=== PATIENT | male | born 1965 | race African-American/Black ===

== ENCOUNTER 2024-11-08 15:09 | Inpatient (IN) | payer OTHER ==
[~2024-11-08] VITALS: Ht 177.8 cm; Wt 48.2 kg
[2024-11-09 01:55] LABS: HEMATOCRIT. 27.8 % (42.0-52.0); HEMOGLOBIN. 8.8 g/dL (14.0-18.0); MEAN CORPUSCULAR HGB CONC 31.8 g/dL (31.0-37.0); MEAN PLATELET VOLUME 6.7 fl (7.4-10.4); PLATELET 381 x1000/uL (130-400); RED BLOOD CELL COUNT 3.27 mill/uL (4.7-6.1); WHITE BLOOD COUNT 11.2 x1000/uL (4.5-11.0)
[2024-11-09 01:58] LABS: CLARITY URINE TURBID (CLEAR); COLOR URINE YELLOW (YELLOW); GLUCOSE URINE NEGATIVE (NEGATIVE); KETONES URINE NEGATIVE (NEGATIVE); LEUKOCYTE ESTERASE URINE NEGATIVE (NEGATIVE); NITRITE URINE NEGATIVE (NEGATIVE); OCCULT BLOOD URINE 1+ (NEGATIVE); PH URINE 5.5 (4.5-8.0); PROTEIN URINE 3+ (NEGATIVE); SPECIFIC GRAVITY URINE 1.017 (1.005-1.030); UROBILINOGEN URINE 0.2 E.U./dL (0.2-1.0)
[2024-11-09] MEDS: DEXAMETHASONE 10 MG/ML VIAL PO ONE (02:15)
[2024-11-09] MEDS: IPRATROPIUM/ALBUTEROL 0.5-3(2.5)MG/3ML NEB HHN ONE (02:15)
[2024-11-09] MEDS: AZITHROMYCIN 500 MG TABLET PO ONE (02:15)
[2024-11-09] MEDS: CEFTRIAXONE SODIUM 1G VIAL IM ONE (02:15)
[2024-11-09 02:22] LABS: DIFFERENTIAL COMMENT 1
[2024-11-09 02:41] LABS: SQUAMOUS EPITHELIAL CELL URINE 2+ /lpf (RARE/1+)
[2024-11-09 02:42] LABS: BACTERIA URINE 1+; RBC URINE 0-2 /hpf (0-2); WBC URINE 0-2 /hpf (0-2)
[2024-11-09 02:44] LABS: AMORPHOUS SEDIMENT URINE 1+ /lpf
[2024-11-09] MEDS ORDERED: CLONIDINE 0.1MG TABLET PO PRN (05:30)
[2024-11-09] MEDS ORDERED: ENOXAPARIN 40MG/0.4ML SYR SUBCUT SCH (05:30)
[2024-11-09] MEDS ORDERED: CEFTRIAXONE 1GM/50ML 50 ML IV SCH (05:30)
[2024-11-09] MEDS ORDERED: ACETAMINOPHEN 325MG TABLET PO PRN (05:30)
[2024-11-09] MEDS ORDERED: ONDANSETRON HCL 4MG/2ML INJ IV PRN (05:30)
[2024-11-09] MEDS ORDERED: MAGNESIUM/ALUMINUM HYDROXIDE/SIMETHICONE 30ML UDC PO PRN (05:30)
[2024-11-09] MEDS ORDERED: AZITHROMYCIN 500MG/250ML 250 ML IV SCH (05:30)
[2024-11-09] MEDS ORDERED: DOCUSATE SODIUM 100MG CAPSULE PO PRN (05:30)
[2024-11-09] MEDS ORDERED: IPRATROPIUM/ALBUTEROL 0.5-3(2.5)MG/3ML NEB HHN PRN (05:30)
[2024-11-09 07:43] LABS: CHLORIDE 97 mEq/L (98-107); POTASSIUM 3.9 mEq/L (3.5-5.1); SODIUM 137 mEq/L (136-145)
[2024-11-09 07:44] LABS: CARBON DIOXIDE 24 mEq/L (21-32)
[2024-11-09 07:49] LABS: GLUCOSE 220 mg/dL (70-105); IRON 35 ug/dL (65-175)
[2024-11-09 07:50] LABS: UREA NITROGEN BLOOD 53 mg/dL (9-23)
[2024-11-09 07:52] LABS: PREALBUMIN 7.4 mg/dl (10.0-40.0)
[2024-11-09] MEDS: LACTATED RINGERS 1,000 ML IV SCH (08:00)
[2024-11-09 08:05] LABS: TOTAL IRON BINDING CAPACITY > 670 ug/dl (250-425)
[2024-11-09 08:06] LABS: CALCIUM 4.7 mg/dL (8.7-10.4); TROPONIN I HIGH SENSITIVITY < 4 ng/L (3.0-53)
[2024-11-09 08:07] LABS: VITAMIN B12 SERUM 1062 pg/mL (211-911)
[2024-11-09 08:22] LABS: FERRITIN 2256 ng/mL (22-322)
[2024-11-09] MEDS: IPRATROPIUM/ALBUTEROL 0.5-3(2.5)MG/3ML NEB HHN SCH (12:00)
[2024-11-09 14:13] LABS: ANISOCYTOSIS 2+; PLATELET ESTIMATE NORMAL
[2024-11-09 20:00] VITALS: BP 109/60; PULSE 91; RESP 20; TEMP 37.00296; O2SAT 97
[2024-11-09] MEDS ORDERED: AZITHROMYCIN 500 MG in SODIUM CHLORIDE 0.9% 250 ML IV SCH (21:00)
[2024-11-09] MEDS ORDERED: FAMOTIDINE 20MG TABLET PO SCH (21:00)
[2024-11-09 21:43] VITALS: BP 109/60; PULSE 91; RESP 20; TEMP 37.0296
[2024-11-09] MEDS: FAMOTIDINE 20MG TABLET PO SCH (23:10)
[2024-11-09] MEDS: CEFTRIAXONE 1GM/50ML 50 ML IV SCH (23:11)
[2024-11-09] MEDS: ENOXAPARIN 40MG/0.4ML SYR SUBCUT SCH (23:12)
[2024-11-10] VITALS (8 sets, daily range): BP systolic 92–119; BP diastolic 51–68; PULSE 75–112; RESP 18–26; TEMP 36.44736–37.00296; O2SAT 18–100
[2024-11-10] MEDS: AZITHROMYCIN 500 MG in SODIUM CHLORIDE 0.9% 250 ML IV SCH (06:08)
[2024-11-10] MEDS: CALCIUM GLUCONATE 1GM PREMIX 50 ML IV NR ×2 (13:24→16:59)
[2024-11-10 13:42] LABS: POTASSIUM 4.4 mEq/L (3.5-5.1)
[2024-11-10 13:48] LABS: CREATININE 2.1 mg/dL (0.6-1.3)
[2024-11-10 13:50] LABS: HEMATOCRIT. 22.3 % (42.0-52.0); HEMOGLOBIN. 7.2 g/dL (14.0-18.0); MEAN CORPUSCULAR HEMOGLOBIN 27.7 pg (28.0-32.0); MEAN CORPUSCULAR HGB CONC 32.5 g/dL (31.0-37.0); MEAN CORPUSCULAR VOLUME 85.3 fL (80.0-94.0); MEAN PLATELET VOLUME 6.6 fl (7.4-10.4); PLATELET 341 x1000/uL (130-400); RED BLOOD CELL COUNT 2.62 mill/uL (4.7-6.1); RED CELL DISTRIBUTION WIDTH 22.2 % (11.6-14.6)
[2024-11-10 13:59] LABS: DIFFERENTIAL COMMENT 1
[2024-11-10] MEDS: INFLUENZA VACCINE 05/PF 0.5 ML SYRINGE IM ONE (21:00)
[2024-11-10] MEDS: PNEUMOCOCCAL 20-VAL CONJ-DIP CRM 0.5ML IM ONE (21:00)
[2024-11-10 21:29] LABS: ANISOCYTOSIS 2+; PLATELET ESTIMATE NORMAL
[2024-11-10] MEDS: GUAIFENESIN 200MG/10ML SUGAR FREE UDC PO PRN (22:22)
[2024-11-11] VITALS (8 sets, daily range): BP systolic 15–123; BP diastolic 46–63; PULSE 79–114; RESP 17–22; TEMP 36.114–36.72516; O2SAT 93–99
[2024-11-11] MEDS: ACETAMINOPHEN 325MG TABLET PO PRN (03:44)
[2024-11-11 09:11] LABS: FOLATE HEMATOCRIT 27.9 % (37.5-51.0)
[2024-11-11 10:34] LABS: CALCIUM 4.4 mg/dL (8.7-10.4)
[2024-11-11] MEDS ORDERED: AZIT250T12 MT (10:48)
[2024-11-11] MEDS ORDERED: AMOX1TAB15 MT (10:48)
[2024-11-11 13:10] LABS: FOLATE RBC 1204 ng/mL (>498)
[2024-11-11 17:25] LABS: HEMOGLOBIN. 7.6 g/dL (14.0-18.0); MEAN CORPUSCULAR HEMOGLOBIN 27.2 pg (28.0-32.0); MEAN CORPUSCULAR HGB CONC 31.8 g/dL (31.0-37.0); MEAN CORPUSCULAR VOLUME 85.5 fL (80.0-94.0); MEAN PLATELET VOLUME 6.6 fl (7.4-10.4); PLATELET 354 x1000/uL (130-400); RED BLOOD CELL COUNT 2.81 mill/uL (4.7-6.1); RED CELL DISTRIBUTION WIDTH 22.6 % (11.6-14.6); WHITE BLOOD COUNT 6.7 x1000/uL (4.5-11.0)
[2024-11-11 17:27] LABS: DIFFERENTIAL COMMENT 1
[2024-11-11 17:45] LABS: LACTATE DEHYDROGENASE 848 IU/L (120-246)
[2024-11-11 20:32] LABS: PLATELET ESTIMATE NORMAL
[2024-11-12] VITALS (9 sets, daily range): BP systolic 91–124; BP diastolic 46–64; PULSE 68–103; RESP 16–22; TEMP 36.3918–36.72516; O2SAT 93–99
[2024-11-12 09:13] LABS: POTASSIUM 3.4 mEq/L (3.5-5.1)
[2024-11-12 09:17] LABS: HEMOGLOBIN. 7.1 g/dL (14.0-18.0); MEAN CORPUSCULAR HEMOGLOBIN 27.9 pg (28.0-32.0); MEAN CORPUSCULAR HGB CONC 32.5 g/dL (31.0-37.0); MEAN PLATELET VOLUME 6.8 fl (7.4-10.4); PLATELET 304 x1000/uL (130-400); RED BLOOD CELL COUNT 2.56 mill/uL (4.7-6.1); RED CELL DISTRIBUTION WIDTH 21.9 % (11.6-14.6)
[2024-11-12 09:19] LABS: CREATININE 2.1 mg/dL (0.6-1.3); INR 1.2; PROTHROMBIN TIME 13.7 sec (9.6-11.0)
[2024-11-12 09:22] LABS: PHOSPHORUS 6.3 mg/dL (2.5-4.9)
[2024-11-12 09:28] LABS: DIFFERENTIAL COMMENT 1
[2024-11-12 13:15] LABS: PROTEIN BODY FLUID 3.2 gm/dL
[2024-11-12] MEDS: SEVELAMER CARBONATE 800 MG TABLET PO SCH (13:39)
[2024-11-12 14:55] LABS: BG BASE EXCESS -6.7 mmol/L (-2.0-3.0); BG CARBOXYHEMOGLOBIN 0.5 % (0.5-1.5); BG DEOXYHEMOGLOBIN 3.5 % (0.0-5.0); BG FRACTION INSPIRED OXYGEN 40; BG HCO3 ACT 17.5 mmol/L (21.0-28.0); BG METHEMOGLOBIN 0.1 % (0.5-1.5); BG OXYGEN SATURATION 96.5 % (94.0-98.0); BG OXYHEMOGLOBIN 95.9 % (94.0-98.0); BG PCO2 29.1 mmHg (35.0-48.0); BG PH 7.396 (7.350-7.450); BG PO2 95.3 mmHg (83.0-108.0); BG SAMPLE SITE LEFT RADIAL; BG VENT MODE NASAL CANNULA
[2024-11-12 16:08] LABS: ANISOCYTOSIS 2+; GIANT PLATELETS 1+; HYPOCHROMASIA 1+; PLATELET ESTIMATE NORMAL
[2024-11-12] MEDS: DOXYCYCLINE HYCLATE 100MG CAPSULE PO SCH (21:29)
[2024-11-12] MEDS: CEFTRIAXONE 1GM/50ML 50 ML IV SCH (21:47)
[2024-11-13] VITALS (8 sets, daily range): BP systolic 97–109; BP diastolic 53–61; PULSE 79–108; RESP 16–20; TEMP 36.44736–36.6696; O2SAT 93–99
[2024-11-13] MEDS: CALCIUM GLUCONATE 1GM PREMIX 50 ML IV NR (10:49)
[2024-11-13] MEDS: CALCIUM ACETATE 667MG CAPSULE PO NR (10:50)
[2024-11-13] MEDS: CALCIUM 1250MG TABLET (500MG ELEMENTAL CALCIUM) PO SCH (12:47)
[2024-11-13] MEDS: ERGOCALCIFEROL 50000UNITS CAPSULE PO NR (12:47)
[2024-11-13 12:52] LABS: HEMATOCRIT. 23.2 % (42.0-52.0); HEMOGLOBIN. 7.3 g/dL (14.0-18.0); MEAN CORPUSCULAR HEMOGLOBIN 27.5 pg (28.0-32.0); MEAN CORPUSCULAR HGB CONC 31.7 g/dL (31.0-37.0); MEAN CORPUSCULAR VOLUME 86.9 fL (80.0-94.0); MEAN PLATELET VOLUME 6.6 fl (7.4-10.4); PLATELET 284 x1000/uL (130-400); RED BLOOD CELL COUNT 2.67 mill/uL (4.7-6.1); RED CELL DISTRIBUTION WIDTH 22.4 % (11.6-14.6); WHITE BLOOD COUNT 7.6 x1000/uL (4.5-11.0)
[2024-11-13 13:10] LABS: DIFFERENTIAL COMMENT 1
[2024-11-13 13:24] LABS: CARBON DIOXIDE 19 mEq/L (21-32); CHLORIDE 110 mEq/L (98-107)
[2024-11-13 13:30] LABS: CREATININE 1.9 mg/dL (0.6-1.3); GLUCOSE 118 mg/dL (70-105); UREA NITROGEN BLOOD 40 mg/dL (9-23)
[2024-11-13 13:31] LABS: ALANINE AMINOTRANSFERASE 31 IU/L (10-49)
[2024-11-13 13:32] LABS: ALBUMIN 3.5 g/dL (3.2-4.8); ASPARTATE AMINOTRANSFERASE 106 IU/L (<34); BILIRUBIN TOTAL 0.2 mg/dL (0.1-1.0); PROTEIN TOTAL 5.7 g/dL (6.0-8.3)
[2024-11-13 13:36] LABS: BILIRUBIN DIRECT < 0.1 mg/dL (<=3.0)
[2024-11-13 13:38] LABS: POTASSIUM 2.8 mEq/L (3.5-5.1); SODIUM 146 mEq/L (136-145)
[2024-11-13] MEDS: MAGNESIUM 2 G PREMIX 50 ML IV NR (15:03)
[2024-11-13 17:00] LABS: ANISOCYTOSIS 2+; PLATELET ESTIMATE NORMAL
[2024-11-13 17:01] LABS: GIANT PLATELETS 1+; HYPOCHROMASIA 1+
[2024-11-13] MEDS: CALCIUM GLUCONATE 1GM PREMIX 50ML IV ONE (18:29)
[2024-11-13] MEDS ORDERED: CALCIUM GLUCONATE 100MG/ML 10ML VIAL IV NR (18:45)
[2024-11-13] MEDS: MAGNESIUM 4 G PREMIX 100 ML IV NR (20:10)
[2024-11-14] VITALS: BP 101/55; PULSE 81; RESP 18; TEMP 36.55848; O2SAT 100
[2024-11-14] MEDS: KCL 20MEQ/100ML PREMIX 100 ML IV SCH (00:35)
[2024-11-14 04:00] VITALS: BP 107/59; PULSE 87; RESP 18; TEMP 36.61404; O2SAT 98
[2024-11-14 08:08] VITALS: BP 104/54; PULSE 84; RESP 18; TEMP 36.55848; O2SAT 97
[2024-11-14 08:20] LABS: POTASSIUM 3.2 mEq/L (3.5-5.1)
[2024-11-14 08:21] LABS: HEMATOCRIT. 23.3 % (42.0-52.0); HEMOGLOBIN. 7.5 g/dL (14.0-18.0); MEAN CORPUSCULAR HEMOGLOBIN 27.5 pg (28.0-32.0); MEAN CORPUSCULAR HGB CONC 32.2 g/dL (31.0-37.0); MEAN CORPUSCULAR VOLUME 85.5 fL (80.0-94.0); MEAN PLATELET VOLUME 6.8 fl (7.4-10.4); PLATELET 271 x1000/uL (130-400); RED BLOOD CELL COUNT 2.72 mill/uL (4.7-6.1); RED CELL DISTRIBUTION WIDTH 22.3 % (11.6-14.6)
[2024-11-14 08:26] LABS: CREATININE 1.6 mg/dL (0.6-1.3)
[2024-11-14 08:38] LABS: DIFFERENTIAL COMMENT 1
[2024-11-14 08:44] LABS: CALCIUM 4.4 mg/dL (8.7-10.4)
[2024-11-14] MEDS ORDERED: CALCIUM GLUCONATE 1,000 MG in DEXT 5% WATER 90 ML IV ONE (09:15)
[2024-11-14 10:27] LABS: ANISOCYTOSIS 1+; PLATELET ESTIMATE NORMAL
[2024-11-14] MEDS: CALCIUM GLUCONATE 1GM PREMIX 50 ML IV NR (11:24)
[2024-11-14] MEDS: POTASSIUM CHLORIDE 20MEQ/PACKET PO NR (11:24)
[2024-11-14] MEDS ORDERED: TAMS-11 PO (11:35)
[2024-11-14 12:05] VITALS: BP 96/60; PULSE 78; RESP 18; TEMP 36.44736; O2SAT 98
[2024-11-14] MEDS: CALCIUM CARBONATE 500MG TABLET CHEW PO SCH (12:37)
[2024-11-14] MEDS: FERROUS SULFATE 325MG TABLET PO SCH (12:37)
[2024-11-14 16:15] VITALS: BP 110/66; PULSE 82; RESP 18; TEMP 36.44736; O2SAT 98
[2024-11-14 17:42] LABS: CHLORIDE 111 mEq/L (98-107); POTASSIUM 3.6 mEq/L (3.5-5.1); SODIUM 144 mEq/L (136-145)
[2024-11-14 17:43] LABS: CARBON DIOXIDE 21 mEq/L (21-32)
[2024-11-14 17:44] LABS: BASOPHILS % 0.2 % (0.0-2.0); EOSINOPHILS % 0.4 % (0.0-5.0); HEMATOCRIT. 23.7 % (42.0-52.0); HEMOGLOBIN. 7.3 g/dL (14.0-18.0); LYMPHOCYTES % 8.7 % (20.0-50.0); MEAN CORPUSCULAR HEMOGLOBIN 26.7 pg (28.0-32.0); MEAN CORPUSCULAR HGB CONC 30.7 g/dL (31.0-37.0); MEAN CORPUSCULAR VOLUME 86.9 fL (80.0-94.0); MEAN PLATELET VOLUME 6.7 fl (7.4-10.4); MONOCYTES % 8.6 % (2.0-8.0); NEUTROPHILS % 82.1 % (40.0-76.0); PLATELET 273 x1000/uL (130-400); RED BLOOD CELL COUNT 2.73 mill/uL (4.7-6.1); WHITE BLOOD COUNT 6.7 x1000/uL (4.5-11.0)
[2024-11-14 17:45] LABS: ADD RBC MORPHOLOGY YES; DIFFERENTIAL COMMENT 1
[2024-11-14 17:48] LABS: CREATININE 1.5 mg/dL (0.6-1.3); GLUCOSE 107 mg/dL (70-105); UREA NITROGEN BLOOD 29 mg/dL (9-23)
[2024-11-14 18:01] LABS: CALCIUM 4.4 mg/dL (8.7-10.4)
[2024-11-14 20:57] LABS: ANISOCYTOSIS 2+; HYPOCHROMASIA 1+; OVALOCYTES 1+; PLATELET ESTIMATE NORMAL
[2024-11-14] MEDS: MELATONIN 3MG TABLET PO NR (22:24)
[2024-11-14] MEDS: MAGNESIUM 2 G PREMIX 50 ML IV NR (23:11)
[2024-11-14] MEDS: CALCIUM 1250MG TABLET (500MG ELEMENTAL CALCIUM) PO SCH (23:25)
[2024-11-15] VITALS (7 sets, daily range): BP systolic 99–109; BP diastolic 58–73; PULSE 77–96; RESP 18–20; TEMP 35.89176–37.00296; O2SAT 97–98
[2024-11-15] MEDS ORDERED: CALCIUM GLUCONATE IV SCH
[2024-11-15] MEDS ORDERED: WATER IV SCH
[2024-11-15] MEDS ORDERED: DEXTROSE 5% IV SCH
[2024-11-15] MEDS: CALCIUM GLUCONATE 1GM PREMIX 50 ML IV NR ×2 (01:15→21:47)
[2024-11-15 07:11] LABS: BASOPHILS % 0.3 % (0.0-2.0); EOSINOPHILS % 0.4 % (0.0-5.0); HEMATOCRIT. 24.7 % (42.0-52.0); HEMOGLOBIN. 7.8 g/dL (14.0-18.0); LYMPHOCYTES % 8.7 % (20.0-50.0); MEAN CORPUSCULAR HEMOGLOBIN 27.2 pg (28.0-32.0); MEAN CORPUSCULAR HGB CONC 31.5 g/dL (31.0-37.0); MEAN CORPUSCULAR VOLUME 86.2 fL (80.0-94.0); MEAN PLATELET VOLUME 6.9 fl (7.4-10.4); MONOCYTES % 7.4 % (2.0-8.0); NEUTROPHILS % 83.2 % (40.0-76.0); PLATELET 279 x1000/uL (130-400); RED BLOOD CELL COUNT 2.86 mill/uL (4.7-6.1); WHITE BLOOD COUNT 6.8 x1000/uL (4.5-11.0)
[2024-11-15 07:30] LABS: ADD RBC MORPHOLOGY NO; DIFFERENTIAL COMMENT 1
[2024-11-15 07:35] LABS: T4 FREE 0.89 ng/dL (0.89-1.76); THYROID STIMULATING HORMONE 0.91 uIU/mL (0.55-4.78)
[2024-11-15 07:37] LABS: PHOSPHORUS 3.2 mg/dL (2.5-4.9)
[2024-11-15] MEDS ORDERED: CALCIUM 1250MG TABLET (500MG ELEMENTAL CALCIUM) PO SCH (07:40)
[2024-11-15 07:46] LABS: CREATINE KINASE 1787 IU/L (46-171)
[2024-11-15] MEDS: SODIUM CHLORIDE 0.45% 1,000 ML IV SCH (09:23)
[2024-11-15] MEDS: TAMSULOSIN HCL 0.4MG SR CAPSULE PO SCH (09:23)
[2024-11-15 13:25] LABS: CHLORIDE 111 mEq/L (98-107); POTASSIUM 3.4 mEq/L (3.5-5.1); SODIUM 146 mEq/L (136-145)
[2024-11-15 13:26] LABS: CARBON DIOXIDE 21 mEq/L (21-32)
[2024-11-15 13:31] LABS: CREATININE 1.4 mg/dL (0.6-1.3); GLUCOSE 92 mg/dL (70-105); UREA NITROGEN BLOOD 28 mg/dL (9-23)
[2024-11-15] MEDS: POTASSIUM CHLORIDE 20MEQ/PACKET PO NR (14:05)
[2024-11-15 20:16] LABS: CREATINE KINASE 1493 IU/L (46-171)
[2024-11-15] MEDS: CALCIUM GLUCONATE IV SCH (21:47)
[2024-11-15] MEDS: DEXTROSE 5% IV SCH (21:47)
[2024-11-15] MEDS: WATER IV SCH (21:47)
[2024-11-15] MEDS: CALCITRIOL 1MCG/ML AMP IV NR (21:49)
[2024-11-16] VITALS: BP 100/60; PULSE 89; RESP 19; TEMP 36.44736; O2SAT 98
[2024-11-16 00:16] LABS: CALCIUM URINE (RAW) < 1.0 mg/dL
[2024-11-16 00:49] LABS: CREATININE URINE (RAW) 36.2 mg/dl
[2024-11-16 01:02] LABS: CALCIUM URINE 24 HR 11.3 mg/24hr (<300); TOTAL VOLUME 24 HR 1125 mL
[2024-11-16 04:00] VITALS: BP 110/65; PULSE 90; RESP 19; TEMP 36.6696; O2SAT 100
[2024-11-16 08:00] VITALS: BP 118/69; PULSE 91; RESP 18; TEMP 36.61404; O2SAT 98
[2024-11-16 11:17] LABS: CHLORIDE 107 mEq/L (98-107); POTASSIUM 3.3 mEq/L (3.5-5.1); SODIUM 142 mEq/L (136-145)
[2024-11-16 11:18] LABS: CARBON DIOXIDE 23 mEq/L (21-32)
[2024-11-16 11:23] LABS: CREATININE 1.1 mg/dL (0.6-1.3); GLUCOSE 124 mg/dL (70-105); UREA NITROGEN BLOOD 26 mg/dL (9-23)
[2024-11-16 11:30] LABS: BASOPHILS % 0.3 % (0.0-2.0); EOSINOPHILS % 0.1 % (0.0-5.0); HEMATOCRIT. 22.8 % (42.0-52.0); HEMOGLOBIN. 7.4 g/dL (14.0-18.0); LYMPHOCYTES % 7.3 % (20.0-50.0); MEAN CORPUSCULAR HEMOGLOBIN 27.7 pg (28.0-32.0); MEAN CORPUSCULAR HGB CONC 32.2 g/dL (31.0-37.0); MEAN PLATELET VOLUME 6.6 fl (7.4-10.4); MONOCYTES % 7.3 % (2.0-8.0); PLATELET 262 x1000/uL (130-400); RED BLOOD CELL COUNT 2.66 mill/uL (4.7-6.1); RED CELL DISTRIBUTION WIDTH 22.2 % (11.6-14.6); WHITE BLOOD COUNT 6.9 x1000/uL (4.5-11.0)
[2024-11-16 11:33] LABS: CALCIUM 5.6 mg/dL (8.7-10.4)
[2024-11-16 11:37] LABS: ADD RBC MORPHOLOGY NO; DIFFERENTIAL COMMENT 1
[2024-11-16 12:00] VITALS: BP 101/59; PULSE 89; RESP 18; TEMP 36.78072; O2SAT 98
[2024-11-16] MEDS: POTASSIUM CHLORIDE 20MEQ/PACKET PO NR (13:15)
[2024-11-16] MEDS: POTASSIUM CHLORIDE 20MEQ TABLET SR PO SCH (14:45)
[2024-11-16] MEDS: CHOLECALCIFEROL (D3) 1000 UNIT TABLET PO SCH (15:23)
[2024-11-16 16:00] VITALS: BP 119/66; PULSE 98; RESP 16; TEMP 36.61404; O2SAT 97
[2024-11-16] MEDS: MAGNESIUM 4 G PREMIX 100 ML IV NR (18:15)
[2024-11-16 20:00] VITALS: BP 115/68; PULSE 101; RESP 18; TEMP 36.55848; O2SAT 99
[2024-11-16] MEDS ORDERED: DEXTROSE 5% IV SCH (22:15)
[2024-11-16] MEDS ORDERED: CALCIUM GLUCONATE IV SCH (22:15)
[2024-11-16] MEDS ORDERED: WATER IV SCH (22:15)
[2024-11-17] VITALS (8 sets, daily range): BP systolic 109–128; BP diastolic 55–79; PULSE 90–103; RESP 18–22; TEMP 36.33624–36.50292; O2SAT 95–99
[2024-11-17] MEDS: CALCIUM GLUCONATE 1GM PREMIX 50 ML IV NR ×2 (00:03→23:51)
[2024-11-17] MEDS: CALCIUM GLUCONATE 1GM PREMIX 50ML IV NR (01:24)
[2024-11-17] MEDS: CALCIUM GLUCONATE IV SCH (04:18)
[2024-11-17] MEDS: DEXTROSE 5% IV SCH (04:18)
[2024-11-17] MEDS: WATER IV SCH (04:18)
[2024-11-17 06:07] LABS: A/G RATIO 0.8 (0.7-1.7); ALBUMIN 2.7 g/dL (2.9-4.4); ALPHA-1-GLOBULIN 0.7 g/dL (0.0-0.4); ALPHA-2-GLOBULIN 1.2 g/dL (0.4-1.0); GAMMA GLOBULINS 0.5 g/dL (0.4-1.8); GLOBULIN TOTAL 3.4 g/dL (2.2-3.9); M-SPIKE Not Observed g/dL (Not Observed); TOTAL PROTEIN SERUM 6.1 g/dL (6.0-8.5)
[2024-11-17 08:08] LABS: CHLORIDE 107 mEq/L (98-107); POTASSIUM 4.3 mEq/L (3.5-5.1); SODIUM 141 mEq/L (136-145)
[2024-11-17 08:09] LABS: CALCIUM 6.8 mg/dL (8.7-10.4); CARBON DIOXIDE 22 mEq/L (21-32)
[2024-11-17 08:14] LABS: GLUCOSE 110 mg/dL (70-105); UREA NITROGEN BLOOD 23 mg/dL (9-23)
[2024-11-17 08:16] LABS: CREATINE KINASE 1179 IU/L (46-171); PHOSPHORUS 2.1 mg/dL (2.5-4.9)
[2024-11-17 08:47] LABS: BASOPHILS % 0.4 % (0.0-2.0); DIFFERENTIAL COMMENT 0; EOSINOPHILS % 0.2 % (0.0-5.0); HEMATOCRIT. 22.1 % (42.0-52.0); LYMPHOCYTES % 9.1 % (20.0-50.0); MEAN CORPUSCULAR HEMOGLOBIN 26.9 pg (28.0-32.0); MEAN CORPUSCULAR HGB CONC 31.2 g/dL (31.0-37.0); MEAN CORPUSCULAR VOLUME 86.2 fL (80.0-94.0); MEAN PLATELET VOLUME 6.9 fl (7.4-10.4); MONOCYTES % 8.3 % (2.0-8.0); PLATELET 272 x1000/uL (130-400); RED BLOOD CELL COUNT 2.57 mill/uL (4.7-6.1); RED CELL DISTRIBUTION WIDTH 21.6 % (11.6-14.6); WHITE BLOOD COUNT 7.5 x1000/uL (4.5-11.0)
[2024-11-17 09:42] LABS: HEMOGLOBIN. 6.9 g/dL (14.0-18.0)
[2024-11-17] MEDS: POTASSIUM PHOSPHATE 20 MMOL in DEXT 5% WATER 243.3333 ML IV SCH (13:43)
[2024-11-17 14:05] LABS: HEMATOCRIT 21.6 % (42.0-52.0)
[2024-11-17 14:18] LABS: HEMOGLOBIN 6.9 g/dL (14.0-18.0)
[2024-11-17] MEDS: IPRATROPIUM/ALBUTEROL 0.5-3(2.5)MG/3ML NEB HHN NR (16:58)
[2024-11-17] MEDS: IPRATROPIUM/ALBUTEROL 0.5-3(2.5)MG/3ML NEB HHN SCH (21:08)
[2024-11-17] MEDS: MELATONIN 3MG TABLET PO SCH (22:42)
[2024-11-18] VITALS (12 sets, daily range): BP systolic 95–131; BP diastolic 45–82; PULSE 99–106; RESP 18–22; TEMP 35.78064–37.05852; O2SAT 95–99
[2024-11-18 13:19] LABS: HEMOGLOBIN 9.2 g/dL (14.0-18.0); MEAN CORPUSCULAR HGB CONC 31.6 g/dL (31.0-37.0); MEAN CORPUSCULAR VOLUME 82.5 fL (80.0-94.0); PLATELET 259 x1000/uL (130-400); RED BLOOD CELL COUNT 3.52 mill/uL (4.7-6.1); RED CELL DISTRIBUTION WIDTH 22.9 % (11.6-14.6); WHITE BLOOD COUNT 10.3 x1000/uL (4.5-11.0)
[2024-11-18 13:38] LABS: CARBON DIOXIDE 23 mEq/L (21-32); CHLORIDE 102 mEq/L (98-107); POTASSIUM 5.1 mEq/L (3.5-5.1); SODIUM 134 mEq/L (136-145)
[2024-11-18 13:39] LABS: CALCIUM 6.5 mg/dL (8.7-10.4)
[2024-11-18 13:44] LABS: GLUCOSE 167 mg/dL (70-105); UREA NITROGEN BLOOD 28 mg/dL (9-23)
[2024-11-18 15:57] LABS: BG BASE EXCESS -5.2 mmol/L (-2.0-3.0); BG CARBOXYHEMOGLOBIN 1.1 % (0.5-1.5); BG DEOXYHEMOGLOBIN 17.1 % (0.0-5.0); BG FRACTION INSPIRED OXYGEN 21; BG HCO3 ACT 20.6 mmol/L (21.0-28.0); BG METHEMOGLOBIN 0.3 % (0.5-1.5); BG OXYGEN SATURATION 82.7 % (94.0-98.0); BG OXYHEMOGLOBIN 81.5 % (94.0-98.0); BG PCO2 41.1 mmHg (35.0-48.0); BG PH 7.317 (7.350-7.450); BG SAMPLE SITE LEFT RADIAL; BG TOTAL HEMOGLOBIN 9.5 g/dL (13.5-17.5); BG VENT MODE ROOM AIR
[2024-11-18] MEDS: IPRATROPIUM/ALBUTEROL 0.5-3(2.5)MG/3ML NEB HHN SCH (16:18)
[2024-11-18] MEDS: MAGNESIUM 2 G PREMIX 50 ML IV NR (18:10)
[2024-11-18] MEDS: CALCIUM GLUCONATE 1GM PREMIX 50 ML IV NR (20:00)
[2024-11-19] VITALS (11 sets, daily range): BP systolic 99–123; BP diastolic 64–73; PULSE 97–116; RESP 18–33; TEMP 36.3918–36.83628; O2SAT 88–100
[2024-11-19 08:09] LABS: CARBON DIOXIDE 24 mEq/L (21-32); CHLORIDE 105 mEq/L (98-107); SODIUM 137 mEq/L (136-145)
[2024-11-19 08:19] LABS: HEMATOCRIT 27.9 % (42.0-52.0); HEMOGLOBIN 8.9 g/dL (14.0-18.0); MEAN CORPUSCULAR HEMOGLOBIN 26.5 pg (28.0-32.0); MEAN CORPUSCULAR VOLUME 82.7 fL (80.0-94.0); PLATELET 265 x1000/uL (130-400); RED BLOOD CELL COUNT 3.38 mill/uL (4.7-6.1); RED CELL DISTRIBUTION WIDTH 23.3 % (11.6-14.6); WHITE BLOOD COUNT 10.2 x1000/uL (4.5-11.0)
[2024-11-19 09:41] LABS: POTASSIUM 6.2 mEq/L (3.5-5.1)
[2024-11-19 09:44] LABS: CALCIUM 6.1 mg/dL (8.7-10.4)
[2024-11-19 09:50] LABS: PHOSPHORUS 4.8 mg/dL (2.5-4.9)
[2024-11-19 10:06] LABS: CREATININE 1.2 mg/dL (0.6-1.3); GLUCOSE 106 mg/dL (70-105); UREA NITROGEN BLOOD 41 mg/dL (9-23)
[2024-11-19 12:59] LABS: CREATINE KINASE 1060 IU/L (46-171)
[2024-11-19] MEDS: METHYLPREDNISOLONE SOD SUCC 125MG/2ML (ACT-O-VIAL) IV NR (15:05)
[2024-11-19] MEDS: SODIUM POLYSTYRENE SULFONATE 15 G/60 ML BOT PO NR (15:05)
[2024-11-19] MEDS: CALCIUM CHLORIDE 1GM/10ML SYR IV NR (15:06)
[2024-11-19] MEDS: FUROSEMIDE 40MG/4ML VIAL IVP NR (15:06)
[2024-11-19] MEDS: DEXTROSE 50% WATER 50ML SYRINGE IV NR (15:06)
[2024-11-19] MEDS: SODIUM BICARBONATE 8.4% 50MEQ/50ML SYR IV NR (15:07)
[2024-11-19] MEDS: INSULIN REGULAR (HUMULIN R) 1000UNITS/10ML VIAL IV NR (15:10)
[2024-11-19] MEDS: ALBUTEROL (0.083%) 2.5MG/3ML NEB HHN NR (15:19)
[2024-11-19] MEDS: VANCOMYCIN 1G PREMIX 200 ML IV NR (15:30)
[2024-11-19] MEDS: PIPERACILLIN/TAZO 3.375G/100ML 100 ML IV SCH (20:35)
[2024-11-19] MEDS: WATER IV SCH (20:38)
[2024-11-19] MEDS: CALCIUM GLUCONATE IV SCH (20:38)
[2024-11-19] MEDS: DEXTROSE 5% IV SCH (20:38)
[2024-11-19] MEDS: MAGNESIUM 2 G PREMIX 50 ML IV NR (21:19)
[2024-11-19] MEDS: METHYLPREDNISOLONE SOD SUCC 125MG/2ML (ACT-O-VIAL) IV SCH (21:19)
[2024-11-20] VITALS (18 sets, daily range): BP systolic 106–133; BP diastolic 47–83; PULSE 96–110; RESP 19–35; TEMP 35.66952–37.16964; O2SAT 89–99
[2024-11-20] MEDS: CALCIUM GLUCONATE 1GM PREMIX 50 ML IV NR ×2 (02:22→16:35)
[2024-11-20] MEDS: VANCOMYCIN 500MG PREMIX 100 ML IV SCH (04:49)
[2024-11-20 05:59] LABS: CALCIUM 6.1 mg/dL (8.7-10.4); CARBON DIOXIDE 21 mEq/L (21-32); CHLORIDE 101 mEq/L (98-107); POTASSIUM 5.2 mEq/L (3.5-5.1); SODIUM 136 mEq/L (136-145)
[2024-11-20 06:05] LABS: CREATININE 1.4 mg/dL (0.6-1.3); UREA NITROGEN BLOOD 48 mg/dL (9-23)
[2024-11-20 06:11] LABS: GLUCOSE 345 mg/dL (70-105)
[2024-11-20 07:09] LABS: HEMATOCRIT. 24.5 % (42.0-52.0); MEAN CORPUSCULAR HEMOGLOBIN 26.9 pg (28.0-32.0); MEAN CORPUSCULAR HGB CONC 32.7 g/dL (31.0-37.0); MEAN CORPUSCULAR VOLUME 82.1 fL (80.0-94.0); MEAN PLATELET VOLUME 7.2 fl (7.4-10.4); PLATELET 251 x1000/uL (130-400); RED BLOOD CELL COUNT 2.99 mill/uL (4.7-6.1); RED CELL DISTRIBUTION WIDTH 23.2 % (11.6-14.6); WHITE BLOOD COUNT 9.9 x1000/uL (4.5-11.0)
[2024-11-20 07:41] LABS: DIFFERENTIAL COMMENT 1
[2024-11-20] MEDS: SODIUM ZIRCONIUM CYCLOSILICATE 10GM/PACKET PO NR (08:27)
[2024-11-20] MEDS: INSULIN REGULAR (HUMULIN R) 1000UNITS/10ML VIAL IV NR (10:16)
[2024-11-20 16:51] LABS: ALBUMIN 3.4 g/dL (3.2-4.8)
[2024-11-20 16:52] LABS: PROTEIN TOTAL 5.6 g/dL (6.0-8.3)
[2024-11-20] MEDS ORDERED: INSULIN LISPRO 100 UNITS/ML SUBCUT SCH (17:30)
[2024-11-20 17:52] LABS: INR 1.1; PARTIAL THROMBOPLASTIN TIME 30.1 sec (23.4-31.0); PROTHROMBIN TIME 11.8 sec (9.6-11.0)
[2024-11-20 18:06] LABS: ANISOCYTOSIS 1+; PLATELET ESTIMATE NORMAL
[2024-11-20] MEDS: BLOOD SUGAR DIAGNOSTIC STRIP TEST SCH (18:16)
[2024-11-20] MEDS: INSULIN LISPRO (LOW DOSE) 100 UNITS/ML SUBCUT SCH (18:17)
[2024-11-20] MEDS: MELATONIN 3MG TABLET PO SCH (21:01)
[2024-11-21] VITALS (18 sets, daily range): BP systolic 103–141; BP diastolic 64–106; PULSE 77–102; RESP 14–32; TEMP 36.22512–37.00296; O2SAT 91–100
[2024-11-21 10:09] LABS: PROTEIN BODY FLUID 2.9 gm/dL
[2024-11-21 10:39] LABS: HEMATOCRIT. 21.8 % (42.0-52.0); HEMOGLOBIN. 7.1 g/dL (14.0-18.0); MEAN CORPUSCULAR HEMOGLOBIN 26.7 pg (28.0-32.0); MEAN CORPUSCULAR HGB CONC 32.4 g/dL (31.0-37.0); MEAN CORPUSCULAR VOLUME 82.4 fL (80.0-94.0); MEAN PLATELET VOLUME 6.9 fl (7.4-10.4); PLATELET 238 x1000/uL (130-400); RED BLOOD CELL COUNT 2.65 mill/uL (4.7-6.1); RED CELL DISTRIBUTION WIDTH 22.9 % (11.6-14.6); WHITE BLOOD COUNT 11.8 x1000/uL (4.5-11.0)
[2024-11-21 10:42] LABS: DIFFERENTIAL COMMENT 1
[2024-11-21 10:48] LABS: CHLORIDE 105 mEq/L (98-107); POTASSIUM 3.3 mEq/L (3.5-5.1); SODIUM 141 mEq/L (136-145)
[2024-11-21 10:49] LABS: CARBON DIOXIDE 25 mEq/L (21-32)
[2024-11-21 10:54] LABS: CREATININE 1.2 mg/dL (0.6-1.3); UREA NITROGEN BLOOD 47 mg/dL (9-23)
[2024-11-21 10:57] LABS: PHOSPHORUS 4.5 mg/dL (2.5-4.9)
[2024-11-21 11:09] LABS: GLUCOSE 132 mg/dL (70-105)
[2024-11-21 11:10] LABS: CALCIUM 5.2 mg/dL (8.7-10.4)
[2024-11-21] MEDS: MAGNESIUM 1 G PREMIX 100 ML IV NR (11:18)
[2024-11-21 11:36] LABS: BG CARBOXYHEMOGLOBIN 0.2 % (0.5-1.5); BG DEOXYHEMOGLOBIN 1.3 % (0.0-5.0); BG FRACTION INSPIRED OXYGEN 70; BG HCO3 ACT 23.9 mmol/L (21.0-28.0); BG METHEMOGLOBIN 0.1 % (0.5-1.5); BG OXYGEN SATURATION 98.7 % (94.0-98.0); BG OXYHEMOGLOBIN 98.4 % (94.0-98.0); BG PH 7.452 (7.350-7.450); BG PO2 122.9 mmHg (83.0-108.0); BG SAMPLE SITE LEFT RADIAL; BG TOTAL HEMOGLOBIN 7.1 g/dL (13.5-17.5); BG VENT MODE HIGH FLOW
[2024-11-21] MEDS: KCL 20MEQ/100ML PREMIX 100 ML IV NR (13:33)
[2024-11-21] MEDS: CALCIUM GLUCONATE IV SCH ×2 (13:34→19:14)
[2024-11-21] MEDS: WATER IV SCH ×2 (13:34→19:14)
[2024-11-21] MEDS: DEXTROSE 5% IV SCH ×2 (13:34→19:14)
[2024-11-21] MEDS: VANCOMYCIN 500MG PREMIX 100 ML IV SCH (14:04)
[2024-11-21 14:38] LABS: ANISOCYTOSIS 2+; PLATELET ESTIMATE NORMAL
[2024-11-21] MEDS: CALCITRIOL 0.25MCG CAPSULE PO SCH (14:58)
[2024-11-21 15:06] LABS: CREATINE KINASE 777 IU/L (46-171)
[2024-11-21] MEDS: MAGNESIUM 2 G PREMIX 50 ML IV NR (17:27)
[2024-11-21] MEDS: CALCIUM GLUCONATE 1GM PREMIX 50 ML IV NR (17:27)
[2024-11-22] VITALS (18 sets, daily range): BP systolic 105–153; BP diastolic 49–135; PULSE 90–110; RESP 16–24; TEMP 36.3918–36.9474; O2SAT 74–100
[2024-11-22] MEDS: INSULIN LISPRO 100 UNITS/ML SUBCUT SCH ×2 (01:12→18:42)
[2024-11-22] MEDS ORDERED: TAMS-11 PO (10:03)
[2024-11-22] MEDS ORDERED: CALC0.253 PO (10:04)
[2024-11-22] MEDS ORDERED: CALC-26 PO (10:04)
[2024-11-22 12:36] LABS: MEAN CORPUSCULAR HGB CONC 31.6 g/dL (31.0-37.0); MEAN CORPUSCULAR VOLUME 82.2 fL (80.0-94.0); MEAN PLATELET VOLUME 6.7 fl (7.4-10.4); PLATELET 229 x1000/uL (130-400); RED BLOOD CELL COUNT 2.68 mill/uL (4.7-6.1); RED CELL DISTRIBUTION WIDTH 22.3 % (11.6-14.6); WHITE BLOOD COUNT 10.3 x1000/uL (4.5-11.0)
[2024-11-22 12:41] LABS: DIFFERENTIAL COMMENT 1
[2024-11-22 12:52] LABS: CHLORIDE 107 mEq/L (98-107); SODIUM 143 mEq/L (136-145)
[2024-11-22 12:53] LABS: CARBON DIOXIDE 21 mEq/L (21-32)
[2024-11-22 12:58] LABS: GLUCOSE 184 mg/dL (70-105); UREA NITROGEN BLOOD 38 mg/dL (9-23)
[2024-11-22 12:59] LABS: LACTATE DEHYDROGENASE 549 IU/L (120-246)
[2024-11-22 13:00] LABS: PHOSPHORUS 2.9 mg/dL (2.5-4.9)
[2024-11-22 13:12] LABS: POTASSIUM 2.7 mEq/L (3.5-5.1)
[2024-11-22 13:13] LABS: CALCIUM 5.6 mg/dL (8.7-10.4)
[2024-11-22] MEDS ORDERED: KCL 20MEQ/100ML PREMIX 100 ML IV ONE (14:15)
[2024-11-22] MEDS ORDERED: MAGNESIUM 2 G PREMIX 50 ML IV ONE (14:15)
[2024-11-22] MEDS ORDERED: DEXTROSE 50% WATER 50ML SYRINGE IV PRN (14:30)
[2024-11-22] MEDS: POTASSIUM CHLORIDE 20MEQ TABLET SR PO NR (14:33)
[2024-11-22] MEDS: KCL 20MEQ/100ML PREMIX 100 ML IV NR (16:16)
[2024-11-22] MEDS: MAGNESIUM 2 G PREMIX 50 ML IV NR (16:17)
[2024-11-22] MEDS: VANCOMYCIN 750MG/150ML (BAXTER) IV SCH (18:43)
[2024-11-22 20:46] LABS: PLATELET ESTIMATE NORMAL
[2024-11-22 20:47] LABS: ANISOCYTOSIS 2+; HYPOCHROMASIA 1+
[2024-11-22] MEDS: BLOOD SUGAR DIAGNOSTIC STRIP TEST SCH (21:14)
[2024-11-22 22:20] LABS: HEMATOCRIT 21.7 % (42.0-52.0); MEAN CORPUSCULAR HEMOGLOBIN 26.5 pg (28.0-32.0); MEAN CORPUSCULAR HGB CONC 31.4 g/dL (31.0-37.0); MEAN CORPUSCULAR VOLUME 84.3 fL (80.0-94.0); PLATELET 230 x1000/uL (130-400); RED BLOOD CELL COUNT 2.57 mill/uL (4.7-6.1); RED CELL DISTRIBUTION WIDTH 22.3 % (11.6-14.6); WHITE BLOOD COUNT 10.9 x1000/uL (4.5-11.0)
[2024-11-22 22:23] LABS: HEMOGLOBIN 6.8 g/dL (14.0-18.0)
[2024-11-23] VITALS (18 sets, daily range): BP systolic 123–151; BP diastolic 72–93; PULSE 71–99; RESP 11–20; TEMP 36.44736–37.28076; O2SAT 79–100
[2024-11-23 01:24] LABS: HEMATOCRIT 21.3 % (42.0-52.0); MEAN CORPUSCULAR HEMOGLOBIN 26.8 pg (28.0-32.0); MEAN CORPUSCULAR HGB CONC 32.4 g/dL (31.0-37.0); MEAN CORPUSCULAR VOLUME 82.6 fL (80.0-94.0); PLATELET 216 x1000/uL (130-400); RED BLOOD CELL COUNT 2.57 mill/uL (4.7-6.1); WHITE BLOOD COUNT 9.7 x1000/uL (4.5-11.0)
[2024-11-23 01:28] LABS: HEMOGLOBIN 6.9 g/dL (14.0-18.0)
[2024-11-23] MEDS: CALCITRIOL 0.25MCG CAPSULE PO SCH (14:16)
[2024-11-23 19:38] LABS: HEMATOCRIT. 28.6 % (42.0-52.0); HEMOGLOBIN. 9.2 g/dL (14.0-18.0); MEAN CORPUSCULAR HGB CONC 32.2 g/dL (31.0-37.0); MEAN CORPUSCULAR VOLUME 83.9 fL (80.0-94.0); MEAN PLATELET VOLUME 7.1 fl (7.4-10.4); PLATELET 208 x1000/uL (130-400); RED CELL DISTRIBUTION WIDTH 20.4 % (11.6-14.6); WHITE BLOOD COUNT 11.8 x1000/uL (4.5-11.0)
[2024-11-23 19:39] LABS: DIFFERENTIAL COMMENT 1
[2024-11-23 19:44] LABS: CHLORIDE 108 mEq/L (98-107); SODIUM 144 mEq/L (136-145)
[2024-11-23 19:46] LABS: CARBON DIOXIDE 21 mEq/L (21-32)
[2024-11-23 19:52] LABS: GLUCOSE 268 mg/dL (70-105); UREA NITROGEN BLOOD 32 mg/dL (9-23)
[2024-11-23 19:53] LABS: ALANINE AMINOTRANSFERASE 82 IU/L (10-49); ALBUMIN 3.2 g/dL (3.2-4.8); ASPARTATE AMINOTRANSFERASE 67 IU/L (<34)
[2024-11-23 19:54] LABS: BILIRUBIN TOTAL 0.5 mg/dL (0.1-1.0); PHOSPHORUS 2.5 mg/dL (2.5-4.9); PROTEIN TOTAL 5.4 g/dL (6.0-8.3)
[2024-11-23 20:09] LABS: MICROCYTOSIS 1+; PLATELET ESTIMATE NORMAL
[2024-11-23 21:07] LABS: POTASSIUM 2.7 mEq/L (3.5-5.1)
[2024-11-23 21:08] LABS: CALCIUM 5.8 mg/dL (8.7-10.4)
[2024-11-23] MEDS ORDERED: CALCIUM GLUCONATE 1GM PREMIX 50 ML IV NR (22:00)
[2024-11-23] MEDS: POTASSIUM CHLORIDE 20MEQ TABLET SR PO SCH (23:41)
[2024-11-23] MEDS: CALCIUM GLUCONATE 1GM PREMIX 50 ML IV SCH (23:41)
[2024-11-23] MEDS: MAGNESIUM 4 G PREMIX 100 ML IV NR (23:42)
[2024-11-23] MEDS: KCL 20MEQ/100ML PREMIX 100 ML IV NR (23:42)
[2024-11-24] VITALS (15 sets, daily range): BP systolic 116–159; BP diastolic 74–94; PULSE 84–102; RESP 12–23; TEMP 36.44736–36.72516; O2SAT 95–100
[2024-11-24 07:54] LABS: CARBON DIOXIDE 21 mEq/L (21-32); CHLORIDE 108 mEq/L (98-107); POTASSIUM 3.3 mEq/L (3.5-5.1); SODIUM 142 mEq/L (136-145)
[2024-11-24 07:55] LABS: CALCIUM 6.6 mg/dL (8.7-10.4)
[2024-11-24 07:59] LABS: CREATININE 0.9 mg/dL (0.6-1.3); HEMATOCRIT. 29.5 % (42.0-52.0); HEMOGLOBIN. 9.4 g/dL (14.0-18.0); MEAN CORPUSCULAR HEMOGLOBIN 26.9 pg (28.0-32.0); MEAN CORPUSCULAR VOLUME 84.3 fL (80.0-94.0); MEAN PLATELET VOLUME 7.3 fl (7.4-10.4); PLATELET 222 x1000/uL (130-400); RED CELL DISTRIBUTION WIDTH 19.7 % (11.6-14.6); WHITE BLOOD COUNT 13.1 x1000/uL (4.5-11.0)
[2024-11-24 08:00] LABS: GLUCOSE 205 mg/dL (70-105); UREA NITROGEN BLOOD 35 mg/dL (9-23)
[2024-11-24 08:02] LABS: PHOSPHORUS 2.3 mg/dL (2.5-4.9)
[2024-11-24 08:08] LABS: DIFFERENTIAL COMMENT 1
[2024-11-24] MEDS: SODIUM BICARBONATE 4% 2.4MEQ/5ML VIAL IV ONE (08:15)
[2024-11-24] MEDS ORDERED: HYDROCODONE/ACETAMINOPHEN 5/325MG TABLET PO PRN (10:45)
[2024-11-24] MEDS: CALCIUM GLUCONATE 1GM PREMIX 50 ML IV SCH (11:00)
[2024-11-24] MEDS: POTASSIUM PHOSPHATE 20 MMOL in DEXT 5% WATER 243.3333 ML IV NR (15:24)
[2024-11-24] MEDS: DEXTROSE 5% IV SCH (15:38)
[2024-11-24] MEDS: CALCIUM GLUCONATE IV SCH (15:38)
[2024-11-24] MEDS: WATER IV SCH (15:38)
[2024-11-24] MEDS: METHYLPREDNISOLONE SOD SUCC 40MG/ML (ACT-O-VIAL) IV SCH (15:39)
[2024-11-24] MEDS ORDERED: DEXTROSE 50% WATER 50ML SYRINGE IV PRN (16:00)
[2024-11-24] MEDS: INSULIN LISPRO 100 UNITS/ML SUBCUT SCH (18:00)
[2024-11-24] MEDS: PIPERACILLIN/TAZO 3.375G/50ML 50 ML IV SCH (18:14)
[2024-11-24] MEDS: BLOOD SUGAR DIAGNOSTIC STRIP TEST SCH (18:15)
[2024-11-24 20:35] LABS: ANISOCYTOSIS 1+; PLATELET ESTIMATE NORMAL
[2024-11-25] VITALS (10 sets, daily range): BP systolic 116–144; BP diastolic 66–87; PULSE 80–102; RESP 16–22; TEMP 36.16956–36.6696; O2SAT 93–98
[2024-11-25 05:12] LABS: A/G RATIO 0.8 (0.7-1.7); ALBUMIN 2.3 g/dL (2.9-4.4); ALPHA-1-GLOBULIN 0.5 g/dL (0.0-0.4); BETA GLOBULIN 0.9 g/dL (0.7-1.3); GAMMA GLOBULINS 0.5 g/dL (0.4-1.8); GLOBULIN TOTAL 2.9 g/dL (2.2-3.9); M-SPIKE Not Observed g/dL (Not Observed); TOTAL PROTEIN SERUM 5.2 g/dL (6.0-8.5)
[2024-11-25 05:42] LABS: BASOPHILS % 0.3 % (0.0-2.0); HEMATOCRIT. 28.7 % (42.0-52.0); HEMOGLOBIN. 9.3 g/dL (14.0-18.0); LYMPHOCYTES % 1.8 % (20.0-50.0); MEAN CORPUSCULAR HEMOGLOBIN 26.9 pg (28.0-32.0); MEAN CORPUSCULAR HGB CONC 32.4 g/dL (31.0-37.0); MEAN PLATELET VOLUME 7.2 fl (7.4-10.4); MONOCYTES % 4.9 % (2.0-8.0); PLATELET 234 x1000/uL (130-400); RED BLOOD CELL COUNT 3.46 mill/uL (4.7-6.1); RED CELL DISTRIBUTION WIDTH 20.1 % (11.6-14.6); WHITE BLOOD COUNT 13.3 x1000/uL (4.5-11.0)
[2024-11-25 05:46] LABS: CHLORIDE 107 mEq/L (98-107); POTASSIUM 3.3 mEq/L (3.5-5.1); SODIUM 142 mEq/L (136-145)
[2024-11-25 05:47] LABS: CALCIUM 6.2 mg/dL (8.7-10.4); CARBON DIOXIDE 25 mEq/L (21-32)
[2024-11-25 05:52] LABS: CREATININE 0.9 mg/dL (0.6-1.3); GLUCOSE 218 mg/dL (70-105); UREA NITROGEN BLOOD 35 mg/dL (9-23)
[2024-11-25 05:54] LABS: PHOSPHORUS 1.8 mg/dL (2.5-4.9)
[2024-11-25 05:58] LABS: DIFFERENTIAL COMMENT 1
[2024-11-25] MEDS: POTASSIUM PHOSPHATE 20 MMOL in DEXT 5% WATER 243.3333 ML IV NR (10:02)
[2024-11-25] MEDS: MAGNESIUM 2 G PREMIX 50 ML IV SCH (10:02)
[2024-11-25] MEDS ORDERED: MAGNESIUM 2 G PREMIX 50 ML IV SCH (17:00)
== END 2024-11-25 17:13 | DRG 720 ==
LOC: ER 15:09 → 8WST 11-09 03:11 → EDBEDREQTM 11-09 03:21 → EDBEDREQ 11-09 03:21 → ER 11-09 07:47 → 5EST 11-19 12:33
PROVIDERS: ADMIT Internal Medicine; ATTEND Internal Medicine
PROC: 0W993ZZ Drainage of Right Pleural Cavity, Percutaneous Approach (ICD-10-PCS; 2024-11-12)
PROC: 0W9B3ZZ Drainage of Left Pleural Cavity, Percutaneous Approach (ICD-10-PCS; principal; 2024-11-13)
PROC: 5A0955A Assistance with Respiratory Ventilation, Greater than 96 Consecutive Hours, High Flow/Velocity Cannula (ICD-10-PCS; 2024-11-19)
PROC: 0W993ZZ Drainage of Right Pleural Cavity, Percutaneous Approach (ICD-10-PCS; 2024-11-21)
PROC: 30233N1 Transfusion of Nonautologous Red Blood Cells into Peripheral Vein, Percutaneous Approach (ICD-10-PCS; 2024-11-23)
PROC: 0W993ZZ Drainage of Right Pleural Cavity, Percutaneous Approach (ICD-10-PCS; 2024-11-24)
DX: A41.9 Sepsis, unspecified organism (principal); N17.0 Acute kidney failure with tubular necrosis; J96.01 Acute respiratory failure with hypoxia; E43 Unspecified severe protein-calorie malnutrition; C79.51 Secondary malignant neoplasm of bone; J18.9 Pneumonia, unspecified organism; E83.39 Other disorders of phosphorus metabolism; E87.0 Hyperosmolality and hypernatremia; E83.51 Hypocalcemia; E87.20 Acidosis, unspecified; J90 Pleural effusion, not elsewhere classified; C61 Malignant neoplasm of prostate; J44.0 Chronic obstructive pulmonary disease with (acute) lower respiratory infection; Z85.46 Personal history of malignant neoplasm of prostate; I12.9 Hypertensive chronic kidney disease with stage 1 through stage 4 chronic kidney disease, or unspecified chronic kidney disease; N18.9 Chronic kidney disease, unspecified; D50.9 Iron deficiency anemia, unspecified; B35.1 Tinea unguium; E83.42 Hypomagnesemia; E87.5 Hyperkalemia; E87.6 Hypokalemia; I51.7 Cardiomegaly; N13.30 Unspecified hydronephrosis; M62.82 Rhabdomyolysis; J96.02 Acute respiratory failure with hypercapnia; R16.0 Hepatomegaly, not elsewhere classified; R73.03 Prediabetes; R94.31 Abnormal electrocardiogram [ECG] [EKG]; J93.83 Other pneumothorax; C80.1 Malignant (primary) neoplasm, unspecified; J44.1 Chronic obstructive pulmonary disease with (acute) exacerbation; R80.9 Proteinuria, unspecified; N40.0 Benign prostatic hyperplasia without lower urinary tract symptoms; F17.210 Nicotine dependence, cigarettes, uncomplicated; Z63.4 Disappearance and death of family member; Z79.899 Other long term (current) drug therapy; Z80.9 Family history of malignant neoplasm, unspecified; Z82.3 Family history of stroke; Z86.73 Personal history of transient ischemic attack (TIA), and cerebral infarction without residual deficits; Z88.6 Allergy status to analgesic agent; Z99.3 Dependence on wheelchair; Z68.1 Body mass index [BMI] 19.9 or less, adult
CPT/HCPCS: 32555; 36415; 36600; 71045; 72100; 76604; 76705; 76770; 80048; 80053; 80076; 80202; 81003; 82024; 82040; 82270; 82306; 82330; 82340; 82375; 82533; 82550; 82575; 82607; 82728; 82747; 82805; 82962; 83036; 83540; 83550; 83615; 83735; 83880; 83970; 83986; 84100; 84132; 84134; 84145; 84153; 84155; 84165; 84439; 84443; 84484; 85014; 85018; 85025; 85027; 86850; 86900; 86920; 87015; 87045; 87070; 87427; 87449; 88108; 88312; 90686; 90732; 93005; 93306; 94070; 94640; 94664; 94760; 97162; 97166; 98960; 99285; A4606; J0456; J0610; J0636; J0696; J1650; J1815; J1940; J2543; J2919; J2920; J3370; J3475; J3480; J3490; J7050; J7060; J7070; P9016

== ENCOUNTER 2025-02-02 15:55 | Inpatient (IN) | payer OTHER ==
[~2025-02-02] VITALS: Ht 162.6 cm; Wt 64.0 kg
[~2025-02-02 15:55] MED LIST: AMOX1TAB15 MT; AZIT250T12 MT; CALC-26 PO; CALC0.253 PO; TAMS-11 PO
[2025-02-02] MEDS: DICYCLOMINE 10 MG/5 ML ORAL SYR PO STA (16:20)
[2025-02-02] MEDS: ONDANSETRON 4MG ODT PO STA (16:48)
[2025-02-02] MEDS: PIPERACILLIN/TAZO 3.375G/50ML 50 ML IV ONE (16:48)
[2025-02-02] MEDS: SODIUM CHLORIDE 0.9% (SEPSIS BOLUS) IV ONE (16:48)
[2025-02-02] MEDS: MAGNESIUM/ALUMINUM HYDROXIDE/SIMETHICONE 30ML UDC PO STA (16:48)
[2025-02-02] MEDS: DICYCLOMINE HCL 10MG CAPSULE PO NR (17:00)
[2025-02-02] MEDS: VANCOMYCIN 1G PREMIX 200 ML IV ONE (17:00)
[2025-02-02] MEDS: FAMOTIDINE 20MG/2ML VIAL IV STA (17:00)
[2025-02-02 17:15] LABS: HEMATOCRIT. 25.6 % (42.0-52.0); MEAN CORPUSCULAR HEMOGLOBIN 27.1 pg (28.0-32.0); MEAN CORPUSCULAR HGB CONC 31.3 g/dL (31.0-37.0); MEAN CORPUSCULAR VOLUME 86.4 fL (80.0-94.0); MEAN PLATELET VOLUME 6.3 fl (7.4-10.4); PLATELET 581 x1000/uL (130-400); RED BLOOD CELL COUNT 2.97 mill/uL (4.7-6.1); RED CELL DISTRIBUTION WIDTH 21.1 % (11.6-14.6); WHITE BLOOD COUNT 8.5 x1000/uL (4.5-11.0)
[2025-02-02 17:18] LABS: CHLORIDE 103 mEq/L (98-107); POTASSIUM 4.8 mEq/L (3.5-5.1); SODIUM 140 mEq/L (136-145)
[2025-02-02 17:19] LABS: CARBON DIOXIDE 22 mEq/L (21-32); INR 1.3; PARTIAL THROMBOPLASTIN TIME 31.3 sec (23.4-31.0); PROTHROMBIN TIME 13.4 sec (9.6-11.0)
[2025-02-02 17:21] LABS: DIFFERENTIAL COMMENT 1
[2025-02-02 17:24] LABS: GLUCOSE 97 mg/dL (70-105); TROPONIN I HIGH SENSITIVITY 19 ng/L (3.0-53); UREA NITROGEN BLOOD 23 mg/dL (9-23)
[2025-02-02] MEDS: MORPHINE SULFATE 4 MG/ML INJ (FOR IV/IM USE) IV ONE (17:24)
[2025-02-02 17:26] LABS: ALANINE AMINOTRANSFERASE 14 IU/L (10-49); ALBUMIN 4.5 g/dL (3.2-4.8); ASPARTATE AMINOTRANSFERASE 81 IU/L (<34); BILIRUBIN DIRECT 0.1 mg/dL (<=3.0); BILIRUBIN TOTAL 0.4 mg/dL (0.1-1.0); PROTEIN TOTAL 7.8 g/dL (6.0-8.3)
[2025-02-02 17:32] LABS: CALCIUM 4.6 mg/dL (8.7-10.4); ETHANOL BLOOD < 10 mg/dL (<10)
[2025-02-02 18:23] LABS: ANISOCYTOSIS 2+; NUCLEATED RED BLOOD CELLS 1 /100 WBC; PLATELET ESTIMATE INCREASED
[2025-02-02 18:24] LABS: ROULEAUX 1+
[2025-02-02] MEDS: CALCIUM GLUCONATE 1GM PREMIX 50 ML IV ONE (18:56)
[2025-02-02 19:02] LABS: PHOSPHORUS 6.8 mg/dL (2.5-4.9)
[2025-02-02 21:00] VITALS: BP 99/67; PULSE 83; RESP 16; TEMP 36.2; O2SAT 99
[2025-02-02] MEDS ORDERED: CLONIDINE 0.1MG TABLET PO PRN (21:30)
[2025-02-02] MEDS ORDERED: MAGNESIUM/ALUMINUM HYDROXIDE/SIMETHICONE 30ML UDC PO PRN (21:30)
[2025-02-02] MEDS ORDERED: DOCUSATE SODIUM 100MG CAPSULE PO PRN (21:30)
[2025-02-02] MEDS ORDERED: ACETAMINOPHEN 325MG TABLET PO PRN (21:30)
[2025-02-02] MEDS ORDERED: ONDANSETRON HCL 4MG/2ML INJ IV PRN (21:30)
[2025-02-02 22:00] VITALS: BP 99/67; PULSE 83; RESP 18; TEMP 36.2
[2025-02-02] MEDS: MAGNESIUM 1 G PREMIX 100 ML IV NR (22:09)
[2025-02-02] MEDS: SODIUM CHLORIDE 0.9% 1,000 ML IV SCH (22:09)
[2025-02-02] MEDS: METRONIDAZOLE 500 MG PREMIX 100 ML IV SCH (23:54)
[2025-02-03] VITALS (7 sets, daily range): BP systolic 85–102; BP diastolic 41–63; PULSE 71–98; RESP 18–20; TEMP 36.2–36.9; O2SAT 96–98
[2025-02-03] MEDS: LEVOFLOXACIN 500MG PREMIX 100 ML IV SCH (00:51)
[2025-02-03 01:22] LABS: CALCIUM 5.1 mg/dL (8.7-10.4)
[2025-02-03 02:06] LABS: CLARITY URINE CLOUDY (CLEAR); COLOR URINE YELLOW (YELLOW); GLUCOSE URINE NEGATIVE (NEGATIVE); KETONES URINE NEGATIVE (NEGATIVE); LEUKOCYTE ESTERASE URINE NEGATIVE (NEGATIVE); NITRITE URINE NEGATIVE (NEGATIVE); OCCULT BLOOD URINE 3+ (NEGATIVE); PH URINE 5.5 (4.5-8.0); PROTEIN URINE 3+ (NEGATIVE); SPECIFIC GRAVITY URINE 1.049 (1.005-1.030); UROBILINOGEN URINE 0.2 E.U./dL (0.2-1.0)
[2025-02-03 02:32] LABS: *AMPHETAMINES SCREEN URINE NEGATIVE (NEGATIVE); *BARBITURATES SCREEN URINE NEGATIVE (NEGATIVE); *BENZODIAZEPINES SCREEN URINE NEGATIVE (NEGATIVE); *COCAINE SCREEN URINE PRESUMPTIVE POSITIVE (NEGATIVE); CANNABINOID URINE SCREEN NEGATIVE (NEGATIVE); ECSTASY MDMA SCREEN URINE NEGATIVE (NEGATIVE); METHADONE URINE SCREEN NEGATIVE (NEGATIVE); OPIATES URINE SCREEN PRESUMPTIVE POSITIVE (NEGATIVE); PHENCYCLIDINE URINE SCREEN NEGATIVE (NEGATIVE)
[2025-02-03] MEDS: CALCIUM GLUCONATE 1GM PREMIX 50 ML IV NR ×2 (02:40→10:10)
[2025-02-03] MEDS: SEVELAMER CARBONATE 800 MG TABLET PO SCH (02:41)
[2025-02-03] MEDS: ACETAMINOPHEN 325MG TABLET PO PRN (02:54)
[2025-02-03 05:54] LABS: RBC URINE TNTC /hpf (0-2); SQUAMOUS EPITHELIAL CELL URINE FEW /lpf (RARE/1+)
[2025-02-03 05:58] LABS: BACTERIA URINE TRACE
[2025-02-03] MEDS: HYDROCODONE/ACETAMINOPHEN 5/325MG TABLET PO PRN ×2 (06:42→23:04)
[2025-02-03] MEDS: CALCIUM 1250MG TABLET (500MG ELEMENTAL CALCIUM) PO SCH (08:52)
[2025-02-03] MEDS: ENOXAPARIN 40MG/0.4ML SYR SUBCUT SCH (08:52)
[2025-02-03] MEDS ORDERED: NALOXONE HCL 0.4MG/ML VIAL IV PRN (09:30)
[2025-02-03] MEDS: MAGNESIUM 4 G PREMIX 100 ML IV NR (10:10)
[2025-02-03] MEDS: CALCITRIOL 1MCG/ML AMP IV SCH (10:15)
[2025-02-03] MEDS: POLYVINYL ALCOHOL OPHTH DROPS 15ML BOTHEYE PRN (10:15)
[2025-02-03 10:34] LABS: CARBON DIOXIDE 21 mEq/L (21-32); CHLORIDE 105 mEq/L (98-107); POTASSIUM 4.6 mEq/L (3.5-5.1); SODIUM 140 mEq/L (136-145)
[2025-02-03 10:39] LABS: TROPONIN I HIGH SENSITIVITY 12 ng/L (3.0-53)
[2025-02-03 10:40] LABS: ALBUMIN 3.8 g/dL (3.2-4.8); GLUCOSE 86 mg/dL (70-105); TRIGLYCERIDE 133 mg/dL (0-150); UREA NITROGEN BLOOD 24 mg/dL (9-23)
[2025-02-03 10:41] LABS: LDL CHOLESTEROL 50 mg/dL (5-100)
[2025-02-03 10:42] LABS: CHOLESTEROL 112 mg/dL (<200); CREATINE KINASE 1056 IU/L (46-171); HDL CHOLESTEROL 29 mg/dL (>55)
[2025-02-03 10:43] LABS: THYROID STIMULATING HORMONE 2.32 uIU/mL (0.55-4.78)
[2025-02-03 10:58] LABS: HEMATOCRIT. 28.2 % (42.0-52.0); HEMOGLOBIN. 8.6 g/dL (14.0-18.0); MEAN CORPUSCULAR HEMOGLOBIN 26.8 pg (28.0-32.0); MEAN CORPUSCULAR HGB CONC 30.5 g/dL (31.0-37.0); MEAN CORPUSCULAR VOLUME 87.7 fL (80.0-94.0); MEAN PLATELET VOLUME 6.2 fl (7.4-10.4); PLATELET 519 x1000/uL (130-400); RED BLOOD CELL COUNT 3.21 mill/uL (4.7-6.1); RED CELL DISTRIBUTION WIDTH 21.7 % (11.6-14.6); WHITE BLOOD COUNT 6.8 x1000/uL (4.5-11.0)
[2025-02-03 11:09] LABS: DIFFERENTIAL COMMENT 1
[2025-02-03 12:12] LABS: CALCIUM 4.7 mg/dL (8.7-10.4)
[2025-02-03] MEDS: MORPHINE SULFATE 2 MG/ML INJ (NOT FOR IM USE) IV PRN (14:02)
[2025-02-03 14:42] LABS: IRON 59 ug/dL (65-175)
[2025-02-03 14:45] LABS: TOTAL IRON BINDING CAPACITY 539 ug/dl (250-425)
[2025-02-03 14:47] LABS: T4 FREE 0.99 ng/dL (0.89-1.76)
[2025-02-03 14:48] LABS: FOLIC ACID (FOLATE) SERUM 16.48 ng/mL (>5.38)
[2025-02-03 14:49] LABS: VITAMIN B12 SERUM 337 pg/mL (211-911)
[2025-02-03 15:37] LABS: FERRITIN 1902 ng/mL (22-322)
[2025-02-03 16:08] LABS: ANISOCYTOSIS 3+; PLATELET ESTIMATE INCREASED
[2025-02-03] MEDS: CALCIUM ACETATE 667MG CAPSULE PO NR (16:39)
[2025-02-03] MEDS: PIPERACILLIN/TAZO 3.375G/50ML 50 ML IV SCH (17:58)
[2025-02-03 18:50] LABS: CALCIUM 4.8 mg/dL (8.7-10.4)
[2025-02-03] MEDS ORDERED: LEVOFLOXACIN 500MG PREMIX 100 ML IV SCH (20:00)
[2025-02-03] MEDS: DOCUSATE SODIUM 100MG CAPSULE PO SCH (21:00)
[2025-02-03 21:34] LABS: CHLORIDE 103 mEq/L (98-107); POTASSIUM 5.1 mEq/L (3.5-5.1); SODIUM 138 mEq/L (136-145)
[2025-02-03 21:35] LABS: CARBON DIOXIDE 20 mEq/L (21-32)
[2025-02-03 21:40] LABS: CREATININE 1.1 mg/dL (0.6-1.3); GLUCOSE 120 mg/dL (70-105); UREA NITROGEN BLOOD 25 mg/dL (9-23)
[2025-02-03 21:45] LABS: CALCIUM 4.7 mg/dL (8.7-10.4)
[2025-02-04] VITALS: BP 100/58; PULSE 96; RESP 19; TEMP 36.7; O2SAT 92
[2025-02-04 04:00] VITALS: BP 107/64; PULSE 101; RESP 17; TEMP 36.6; O2SAT 95
[2025-02-04] MEDS: CALCIUM GLUCONATE 1GM PREMIX 50 ML IV NR (06:25)
[2025-02-04 06:56] LABS: CHLORIDE 104 mEq/L (98-107); POTASSIUM 5.1 mEq/L (3.5-5.1); SODIUM 138 mEq/L (136-145)
[2025-02-04 06:57] LABS: CARBON DIOXIDE 19 mEq/L (21-32)
[2025-02-04 06:58] LABS: HEMOGLOBIN 7.5 g/dL (14.0-18.0); MEAN CORPUSCULAR HEMOGLOBIN 27.3 pg (28.0-32.0); MEAN CORPUSCULAR HGB CONC 31.3 g/dL (31.0-37.0); MEAN CORPUSCULAR VOLUME 87.2 fL (80.0-94.0); PLATELET 486 x1000/uL (130-400); RED BLOOD CELL COUNT 2.75 mill/uL (4.7-6.1); RED CELL DISTRIBUTION WIDTH 21.6 % (11.6-14.6); WHITE BLOOD COUNT 7.6 x1000/uL (4.5-11.0)
[2025-02-04 07:02] LABS: CREATINE KINASE 669 IU/L (46-171); CREATININE 1.3 mg/dL (0.6-1.3); GLUCOSE 86 mg/dL (70-105); UREA NITROGEN BLOOD 29 mg/dL (9-23)
[2025-02-04 07:04] LABS: PHOSPHORUS 7.3 mg/dL (2.5-4.9)
[2025-02-04 07:13] LABS: LACTATE DEHYDROGENASE 1098 IU/L (120-246)
[2025-02-04] MEDS ORDERED: CALCIUM 1250MG TABLET (500MG ELEMENTAL CALCIUM) PO SCH (07:15)
[2025-02-04 08:00] VITALS: BP 140/70; PULSE 58; RESP 18; TEMP 36.9; O2SAT 94
[2025-02-04 08:17] LABS: CALCIUM 4.8 mg/dL (8.7-10.4)
[2025-02-04] MEDS ORDERED: ENOXAPARIN 40MG/0.4ML SYR SUBCUT SCH (09:00)
[2025-02-04 12:00] VITALS: BP 112/67; PULSE 92; RESP 16; TEMP 36.8; O2SAT 88
[2025-02-04] MEDS: CALCIUM ACETATE 667MG CAPSULE PO SCH (13:20)
[2025-02-04] MEDS: CALCIUM GLUCONATE 1GM PREMIX 50 ML IV ONE (13:36)
[2025-02-04] MEDS: SODIUM CHLORIDE 0.9% IV SCH (15:12)
[2025-02-04] MEDS: CALCIUM CHLORIDE IV SCH (15:12)
[2025-02-04 16:00] VITALS: BP 121/58; PULSE 83; RESP 20; TEMP 36.8; O2SAT 88
[2025-02-04] MEDS: VANCOMYCIN 1.5GM PMX (XELLIA) 300 ML IV SCH (18:45)
[2025-02-04 20:00] VITALS: BP 103/58; PULSE 95; RESP 16; TEMP 34.6; O2SAT 88
[2025-02-04 22:25] LABS: CALCIUM 5.5 mg/dL (8.7-10.4)
[2025-02-04] MEDS: CALCIUM 1250MG TABLET (500MG ELEMENTAL CALCIUM) PO SCH (23:25)
[2025-02-05] VITALS (11 sets, daily range): BP systolic 99–113; BP diastolic 57–80; PULSE 83–94; RESP 16–21; TEMP 36.1–36.7; O2SAT 85–100
[2025-02-05] MEDS: VANCOMYCIN 750MG PMX (XELLIA) 150 ML IV SCH (05:51)
[2025-02-05 07:35] LABS: HEMATOCRIT. 22.2 % (42.0-52.0); MEAN CORPUSCULAR HEMOGLOBIN 27.4 pg (28.0-32.0); MEAN CORPUSCULAR HGB CONC 30.7 g/dL (31.0-37.0); MEAN CORPUSCULAR VOLUME 89.1 fL (80.0-94.0); MEAN PLATELET VOLUME 6.1 fl (7.4-10.4); PLATELET 438 x1000/uL (130-400); RED BLOOD CELL COUNT 2.49 mill/uL (4.7-6.1); RED CELL DISTRIBUTION WIDTH 21.7 % (11.6-14.6); WHITE BLOOD COUNT 7.1 x1000/uL (4.5-11.0)
[2025-02-05 07:54] LABS: PHOSPHORUS 6.9 mg/dL (2.5-4.9)
[2025-02-05 08:10] LABS: DIFFERENTIAL COMMENT 1; HEMOGLOBIN. 6.8 g/dL (14.0-18.0)
[2025-02-05 13:01] LABS: CARBON DIOXIDE 18 mEq/L (21-32); CHLORIDE 111 mEq/L (98-107); POTASSIUM 4.7 mEq/L (3.5-5.1); SODIUM 143 mEq/L (136-145)
[2025-02-05 13:07] LABS: CREATININE 1.3 mg/dL (0.6-1.3); GLUCOSE 142 mg/dL (70-105)
[2025-02-05 13:08] LABS: UREA NITROGEN BLOOD 29 mg/dL (9-23)
[2025-02-05 13:29] LABS: CALCIUM 5.4 mg/dL (8.7-10.4)
[2025-02-05 14:44] LABS: ANISOCYTOSIS 2+; PLATELET ESTIMATE INCREASED
[2025-02-05] MEDS ORDERED: VANCOMYCIN 750MG PMX (XELLIA) 150 ML IV SCH (21:00)
[2025-02-06] VITALS (7 sets, daily range): BP systolic 96–152; BP diastolic 65–87; PULSE 59–105; RESP 16–19; TEMP 36.2–37.1; O2SAT 59–99
[2025-02-06 00:30] LABS: HEMATOCRIT 31.3 % (42.0-52.0); HEMOGLOBIN 9.9 g/dL (14.0-18.0)
[2025-02-06] MEDS: VANCOMYCIN 1GM PMX (XELLIA) 200 ML IV SCH (00:49)
[2025-02-06] MEDS: FERROUS SULFATE 325MG TABLET PO SCH (09:06)
[2025-02-06 09:07] LABS: IMMUNOGLOBULIN A 143 mg/dL (61-437); IMMUNOGLOBULIN G 673 mg/dL (603-1613); IMMUNOGLOBULIN M 58 mg/dL (20-172)
[2025-02-06 10:08] LABS: CHLORIDE 111 mEq/L (98-107); POTASSIUM 4.3 mEq/L (3.5-5.1); SODIUM 144 mEq/L (136-145)
[2025-02-06 10:09] LABS: CARBON DIOXIDE 19 mEq/L (21-32)
[2025-02-06 10:14] LABS: CREATININE 1.1 mg/dL (0.6-1.3); GLUCOSE 123 mg/dL (70-105); UREA NITROGEN BLOOD 25 mg/dL (9-23)
[2025-02-06 10:44] LABS: CALCIUM 5.3 mg/dL (8.7-10.4)
[2025-02-06] MEDS ORDERED: CYANOCOBALAMIN 1000MCG/ML VIAL IM NR (10:45)
[2025-02-06] MEDS: CYANOCOBALAMIN 1000MCG/ML VIAL IM SCH (14:18)
[2025-02-07] VITALS: BP 122/77; PULSE 113; RESP 22; TEMP 36.9; O2SAT 98
[2025-02-07 04:00] VITALS: BP 111/75; PULSE 111; RESP 16; TEMP 36.8; O2SAT 97
[2025-02-07 06:35] LABS: HEMATOCRIT 31.9 % (42.0-52.0); HEMOGLOBIN 10.2 g/dL (14.0-18.0); MEAN CORPUSCULAR HEMOGLOBIN 27.4 pg (28.0-32.0); MEAN CORPUSCULAR HGB CONC 32.1 g/dL (31.0-37.0); MEAN CORPUSCULAR VOLUME 85.3 fL (80.0-94.0); PLATELET 386 x1000/uL (130-400); RED BLOOD CELL COUNT 3.73 mill/uL (4.7-6.1); RED CELL DISTRIBUTION WIDTH 21.8 % (11.6-14.6); WHITE BLOOD COUNT 8.5 x1000/uL (4.5-11.0)
[2025-02-07 06:48] LABS: CHLORIDE 111 mEq/L (98-107); POTASSIUM 4.4 mEq/L (3.5-5.1); SODIUM 145 mEq/L (136-145)
[2025-02-07 06:49] LABS: CARBON DIOXIDE 20 mEq/L (21-32)
[2025-02-07 06:54] LABS: GLUCOSE 165 mg/dL (70-105)
[2025-02-07 06:55] LABS: UREA NITROGEN BLOOD 21 mg/dL (9-23)
[2025-02-07 06:57] LABS: PHOSPHORUS 5.1 mg/dL (2.5-4.9)
[2025-02-07 07:05] LABS: CALCIUM 5.7 mg/dL (8.7-10.4)
[2025-02-07 08:00] VITALS: BP 137/89; PULSE 105; RESP 23; TEMP 36.7; O2SAT 87
[2025-02-07] MEDS ORDERED: MAGNESIUM 4 G PREMIX 100 ML IV NR ×2 (09:15→11:00)
[2025-02-07] MEDS: MAGNESIUM 4 G PREMIX 100 ML IV NR (10:50)
[2025-02-07 12:00] VITALS: BP_SYST 123; BP_SYST 135; BP_DIAS 73; BP_DIAS 81; PULSE 103; PULSE 111; RESP 20; TEMP 36.8; TEMP 36.9; O2SAT 100; O2SAT 93
[2025-02-07] MEDS: IOHEXOL-350 100 ML BOTTLE ONE (13:34)
[2025-02-07 16:00] VITALS: BP 123/73; PULSE 111; RESP 20; TEMP 36.9; O2SAT 93
[2025-02-07 20:00] VITALS: BP 129/75; PULSE 115; RESP 20; TEMP 37; O2SAT 96
[2025-02-08] VITALS (7 sets, daily range): BP systolic 117–132; BP diastolic 67–82; PULSE 72–117; RESP 16–20; TEMP 36.1–37; O2SAT 94–98
[2025-02-08 06:54] LABS: CHLORIDE 115 mEq/L (98-107); POTASSIUM 4.2 mEq/L (3.5-5.1); SODIUM 145 mEq/L (136-145)
[2025-02-08 06:55] LABS: CARBON DIOXIDE 18 mEq/L (21-32)
[2025-02-08 07:00] LABS: CREATININE 0.8 mg/dL (0.6-1.3); GLUCOSE 101 mg/dL (70-105); UREA NITROGEN BLOOD 16 mg/dL (9-23)
[2025-02-08 07:02] LABS: PHOSPHORUS 3.8 mg/dL (2.5-4.9)
[2025-02-08 07:23] LABS: HEMATOCRIT. 27.7 % (42.0-52.0); HEMOGLOBIN. 8.8 g/dL (14.0-18.0); MEAN CORPUSCULAR HEMOGLOBIN 27.7 pg (28.0-32.0); MEAN CORPUSCULAR HGB CONC 31.9 g/dL (31.0-37.0); MEAN CORPUSCULAR VOLUME 86.9 fL (80.0-94.0); MEAN PLATELET VOLUME 6.3 fl (7.4-10.4); PLATELET 349 x1000/uL (130-400); RED BLOOD CELL COUNT 3.19 mill/uL (4.7-6.1); RED CELL DISTRIBUTION WIDTH 21.3 % (11.6-14.6); WHITE BLOOD COUNT 8.3 x1000/uL (4.5-11.0)
[2025-02-08 07:38] LABS: DIFFERENTIAL COMMENT 1
[2025-02-08] MEDS ORDERED: HYDROCODONE/ACETAMINOPHEN 7.5/325MG TABLET PO PRN (09:45)
[2025-02-08] MEDS ORDERED: NALOXONE HCL 0.4MG/ML VIAL IV PRN (09:45)
[2025-02-08] MEDS: MAGNESIUM 4 G PREMIX 100 ML IV NR (10:56)
[2025-02-08] MEDS: BICALUTAMIDE 50 MG TABLET PO SCH (10:56)
[2025-02-08 12:24] LABS: CALCIUM 6.6 mg/dL (8.7-10.4)
[2025-02-08 16:10] LABS: PLATELET ESTIMATE NORMAL
[2025-02-08] MEDS: HYDROCODONE/ACETAMINOPHEN 5/325MG TABLET PO PRN (17:00)
[2025-02-08] MEDS: IPRATROPIUM/ALBUTEROL 0.5-3(2.5)MG/3ML NEB HHN PRN (19:56)
[2025-02-08] MEDS: GUAIFENESIN 200MG/10ML SUGAR FREE UDC PO PRN (20:43)
[2025-02-09] VITALS: BP 119/74; PULSE 81; RESP 16; TEMP 36.2; O2SAT 90
[2025-02-09 04:00] VITALS: BP 119/71; PULSE 109; RESP 18; TEMP 36.2; O2SAT 93
[2025-02-09 06:17] LABS: HEMATOCRIT 29.8 % (42.0-52.0); HEMOGLOBIN 9.5 g/dL (14.0-18.0); MEAN CORPUSCULAR HEMOGLOBIN 27.4 pg (28.0-32.0); MEAN CORPUSCULAR VOLUME 85.6 fL (80.0-94.0); PLATELET 345 x1000/uL (130-400); RED BLOOD CELL COUNT 3.48 mill/uL (4.7-6.1); RED CELL DISTRIBUTION WIDTH 21.5 % (11.6-14.6); WHITE BLOOD COUNT 8.8 x1000/uL (4.5-11.0)
[2025-02-09 06:33] LABS: CALCIUM 7.2 mg/dL (8.7-10.4); CARBON DIOXIDE 20 mEq/L (21-32); CHLORIDE 110 mEq/L (98-107); POTASSIUM 4.1 mEq/L (3.5-5.1); SODIUM 145 mEq/L (136-145)
[2025-02-09 06:39] LABS: CREATININE 0.9 mg/dL (0.6-1.3); GLUCOSE 155 mg/dL (70-105); UREA NITROGEN BLOOD 17 mg/dL (9-23)
[2025-02-09 06:41] LABS: PHOSPHORUS 3.8 mg/dL (2.5-4.9)
[2025-02-09] MEDS: CALCIUM ACETATE 667MG CAPSULE PO SCH (08:35)
[2025-02-09 16:28] VITALS: PULSE 89; RESP 18; TEMP 36.1; O2SAT 94
[2025-02-09 20:00] VITALS: BP 118/73; PULSE 102; RESP 18; TEMP 36.4; O2SAT 98
[2025-02-10] VITALS (8 sets, daily range): BP systolic 107–113; BP diastolic 50–85; PULSE 20–99; RESP 16–22; TEMP 36.1–36.7; O2SAT 1–99
[2025-02-10 09:14] LABS: HEMATOCRIT 33.1 % (42.0-52.0); HEMOGLOBIN 10.1 g/dL (14.0-18.0); MEAN CORPUSCULAR HEMOGLOBIN 26.8 pg (28.0-32.0); MEAN CORPUSCULAR HGB CONC 30.6 g/dL (31.0-37.0); MEAN CORPUSCULAR VOLUME 87.8 fL (80.0-94.0); PLATELET 326 x1000/uL (130-400); RED BLOOD CELL COUNT 3.77 mill/uL (4.7-6.1); RED CELL DISTRIBUTION WIDTH 21.4 % (11.6-14.6); WHITE BLOOD COUNT 8.9 x1000/uL (4.5-11.0)
[2025-02-10 09:32] LABS: CALCIUM 7.3 mg/dL (8.7-10.4); CHLORIDE 113 mEq/L (98-107); POTASSIUM 4.2 mEq/L (3.5-5.1); SODIUM 145 mEq/L (136-145)
[2025-02-10 09:33] LABS: CARBON DIOXIDE 23 mEq/L (21-32)
[2025-02-10 09:38] LABS: CREATININE 0.7 mg/dL (0.6-1.3); GLUCOSE 113 mg/dL (70-105); UREA NITROGEN BLOOD 15 mg/dL (9-23)
[2025-02-10] MEDS ORDERED: CALC-26 PO (11:05)
[2025-02-10] MEDS ORDERED: TOPUD PO (11:05)
[2025-02-10] MEDS ORDERED: BICA50TA48 PO (11:05)
[2025-02-10] MEDS: MAGNESIUM 4 G PREMIX 100 ML IV NR (11:58)
[2025-02-10] MEDS ORDERED: LIDOCAINE HCL/PF 1% 2ML VIAL ONE (12:12)
[2025-02-10 13:38] LABS: BG BASE EXCESS -3.6 mmol/L (-2.0-3.0); BG CARBOXYHEMOGLOBIN 0.1 % (0.5-1.5); BG DEOXYHEMOGLOBIN 11.9 % (0.0-5.0); BG FRACTION INSPIRED OXYGEN 21; BG HCO3 ACT 21.9 mmol/L (21.0-28.0); BG METHEMOGLOBIN 0.3 % (0.5-1.5); BG OXYGEN SATURATION 88.1 % (94.0-98.0); BG OXYHEMOGLOBIN 87.7 % (94.0-98.0); BG PCO2 41.4 mmHg (35.0-48.0); BG PH 7.341 (7.350-7.450); BG PO2 53.7 mmHg (83.0-108.0); BG SAMPLE SITE LEFT BRACHIAL; BG VENT MODE ROOM AIR
[2025-02-11] VITALS: BP 117/71; PULSE 92; RESP 18; TEMP 36.1; O2SAT 96
[2025-02-11 04:00] VITALS: BP 125/68; PULSE 8; RESP 17; TEMP 36.2; O2SAT 98
[2025-02-11 08:00] VITALS: BP 106/65; PULSE 73; RESP 17; TEMP 36.4; O2SAT 92
[2025-02-11 10:08] LABS: HEMATOCRIT. 30.6 % (42.0-52.0); HEMOGLOBIN. 9.5 g/dL (14.0-18.0); MEAN CORPUSCULAR HEMOGLOBIN 27.1 pg (28.0-32.0); MEAN CORPUSCULAR VOLUME 87.5 fL (80.0-94.0); MEAN PLATELET VOLUME 6.3 fl (7.4-10.4); PLATELET 353 x1000/uL (130-400); RED CELL DISTRIBUTION WIDTH 21.4 % (11.6-14.6); WHITE BLOOD COUNT 7.9 x1000/uL (4.5-11.0)
[2025-02-11 10:09] LABS: DIFFERENTIAL COMMENT 1
[2025-02-11 10:22] LABS: CARBON DIOXIDE 23 mEq/L (21-32); CHLORIDE 107 mEq/L (98-107); SODIUM 144 mEq/L (136-145)
[2025-02-11 10:24] LABS: CALCIUM 6.8 mg/dL (8.7-10.4)
[2025-02-11 10:28] LABS: CREATININE 0.8 mg/dL (0.6-1.3); GLUCOSE 92 mg/dL (70-105)
[2025-02-11 10:29] LABS: UREA NITROGEN BLOOD 16 mg/dL (9-23)
[2025-02-11 10:31] LABS: PHOSPHORUS 3.7 mg/dL (2.5-4.9)
[2025-02-11 12:00] VITALS: BP 121/73; PULSE 90; RESP 18; TEMP 36.6; O2SAT 98
[2025-02-11] MEDS: MAGNESIUM 2 G PREMIX 50 ML IV NR (14:03)
[2025-02-11 14:45] VITALS: BP 121/73; PULSE 90; TEMP 97.4; O2SAT 98
[2025-02-11 15:27] LABS: PLATELET ESTIMATE NORMAL
[2025-02-11 16:00] VITALS: BP 118/71; PULSE 95; RESP 22; TEMP 36.6; O2SAT 92
== END 2025-02-11 17:15 | disposition home health service (06) | DRG 500 ==
LOC: ER 15:55 → EDBEDREQTM 18:40 → EDBEDREQ 18:40 → 5WST 20:36
PROVIDERS: ADMIT Internal Medicine; ATTEND Internal Medicine
PROC: 0W9930Z Drainage of Right Pleural Cavity with Drainage Device, Percutaneous Approach (ICD-10-PCS; principal; 2025-02-04)
PROC: 30233N1 Transfusion of Nonautologous Red Blood Cells into Peripheral Vein, Percutaneous Approach (ICD-10-PCS; 2025-02-05)
DX: C61 Malignant neoplasm of prostate (principal); J96.01 Acute respiratory failure with hypoxia; N17.0 Acute kidney failure with tubular necrosis; E43 Unspecified severe protein-calorie malnutrition; R64 Cachexia; E83.39 Other disorders of phosphorus metabolism; E83.51 Hypocalcemia; K40.30 Unilateral inguinal hernia, with obstruction, without gangrene, not specified as recurrent; E87.0 Hyperosmolality and hypernatremia; E87.20 Acidosis, unspecified; J91.0 Malignant pleural effusion; J44.1 Chronic obstructive pulmonary disease with (acute) exacerbation; M62.82 Rhabdomyolysis; R62.7 Adult failure to thrive; E11.22 Type 2 diabetes mellitus with diabetic chronic kidney disease; E83.42 Hypomagnesemia; E87.6 Hypokalemia; D50.9 Iron deficiency anemia, unspecified; D75.839 Thrombocytosis, unspecified; E78.5 Hyperlipidemia, unspecified; N13.30 Unspecified hydronephrosis; N18.9 Chronic kidney disease, unspecified; N40.0 Benign prostatic hyperplasia without lower urinary tract symptoms; N26.1 Atrophy of kidney (terminal); F19.10 Other psychoactive substance abuse, uncomplicated; F14.90 Cocaine use, unspecified, uncomplicated; F17.200 Nicotine dependence, unspecified, uncomplicated; Z74.01 Bed confinement status; Z68.30 Body mass index [BMI] 30.0-30.9, adult; Z86.73 Personal history of transient ischemic attack (TIA), and cerebral infarction without residual deficits; Z85.46 Personal history of malignant neoplasm of prostate; Z88.6 Allergy status to analgesic agent; Z68.24 Body mass index [BMI] 24.0-24.9, adult
CPT/HCPCS: 32555; 36415; 36600; 71045; 71275; 74176; 80048; 80061; 80076; 80202; 80305; 80320; 81003; 82040; 82306; 82310; 82330; 82375; 82550; 82607; 82728; 82746; 82784; 82805; 83036; 83540; 83550; 83605; 83615; 83735; 83880; 83970; 84100; 84145; 84153; 84439; 84443; 84484; 85014; 85018; 85025; 85027; 85044; 86334; 86850; 86900; 86920; 93005; 93970; 94640; 94760; 97166; 99291; A4606; C1893; J0610; J0636; J1650; J1956; J2270; J2543; J3370; J3420; J3475; J3490; J7030; P9016; Q0162; Q9967; G0480